=== PATIENT | male | born 1940 | race Two or more races ===

== ENCOUNTER 2016-04-29 12:58 | Inpatient (IN) | payer MEDICARE, MEDICAID ==
[~2016-04-29] VITALS: Ht 205.7 cm; Wt 108.9 kg
[~2016-04-29 12:58] MED LIST: METOPROLOL; NAPROXEN
[2016-04-29] MEDS ORDERED: MORPHINE SULFATE 4 MG/ML CPJ (NOT FOR IM USE) IV STA (13:43)
[2016-04-29] MEDS ORDERED: ONDANSETRON HCL 4MG/2ML VIAL IV STA (13:43)
[2016-04-29 14:09] LABS: BASOPHILS % 0.8 % (0.0-2.0); DIFFERENTIAL COMMENT 0; EOSINOPHILS % 0.1 % (0.0-5.0); HEMATOCRIT. 43.8 % (42.0-52.0); HEMOGLOBIN. 15.1 g/dL (14.0-18.0); LYMPHOCYTES % 11.3 % (20.0-50.0); MEAN CORPUSCULAR HEMOGLOBIN 36.2 pg (28.0-32.0); MEAN CORPUSCULAR HGB CONC 34.5 g/dL (31.0-37.0); MEAN CORPUSCULAR VOLUME 105.1 fL (80.0-94.0); MEAN PLATELET VOLUME 9.7 fl (7.4-10.4); MONOCYTES % 14.3 % (2.0-8.0); NEUTROPHILS % 73.5 % (40.0-76.0); PLATELET 183 x1000/uL (130-400); RED BLOOD CELL COUNT 4.17 mill/uL (4.7-6.1); RED CELL DISTRIBUTION WIDTH 14.1 % (11.6-14.6); WHITE BLOOD COUNT 12.6 x1000/uL (4.5-11.0)
[2016-04-29 14:13] LABS: INR 1.1; PROTHROMBIN TIME 11.3 sec
[2016-04-29 14:20] LABS: ALANINE AMINOTRANSFERASE 50 IU/L (13-61); ALBUMIN 2.8 g/dL (3.4-5.0); ANION GAP 13; CALCIUM 8.9 mg/dL (8.5-10.1); CARBON DIOXIDE 26 mEq/L (21-32); CHLORIDE 104 mEq/L (98-107); INDEX HEMOLYSI 1 (1-3); INDEX ICTERIC 1 (1-4); INDEX LIPEMIC 1 (1-3); UREA NITROGEN BLOOD 15 mg/dL (7-21); URIC ACID 4.6 mg/dL (2.6-7.2); eGFR > 60 mL/min (>60)
[2016-04-29 14:27] LABS: GLUCOSE URINE NEGATIVE (NEGATIVE); KETONES URINE NEGATIVE (NEGATIVE); LEUKOCYTE ESTERASE URINE NEGATIVE (NEGATIVE); NITRITE URINE NEGATIVE (NEGATIVE); OCCULT BLOOD URINE TRACE (NEGATIVE); PH URINE 5.5 (4.5-8.0); PROTEIN URINE 3+ (NEGATIVE); SPECIFIC GRAVITY URINE 1.021 (1.005-1.030)
[2016-04-29 14:36] LABS: CLARITY URINE CLEAR (CLEAR); COLOR URINE YELLOW (YELLOW)
[2016-04-29 14:49] LABS: BACTERIA URINE NONE SEEN; COARSE GRANULAR CASTS URINE 0-5 /lpf; HYALINE CASTS URINE 0-5 /lpf; RBC URINE 0-2 /hpf (0-2); SQUAMOUS EPITHELIAL CELL URINE RARE /lpf (RARE/1+); WBC URINE 0-2 /hpf (0-2)
[2016-04-29] MEDS ORDERED: LIDOCAINE HCL/EPINEPHRINE 1%-EPI 1:100,000 20 ML VIAL MC ONE (15:15)
[2016-04-29] MEDS ORDERED: VANCOMYCIN 1 G PREMIX 200 ML IV SCH (17:15)
[2016-04-29 18:05] LABS: BODY FLUID WBC 92750 /cu mm (0-200)
[2016-04-29 18:45] LABS: BODY FLUID MONOCYTES 5 %
[2016-04-29] MEDS ORDERED: ACETAMINOPHEN 325MG TABLET PO PRN (21:30)
[2016-04-29] MEDS ORDERED: ONDANSETRON HCL 4MG/2ML VIAL IV PRN (21:30)
[2016-04-29] MEDS ORDERED: CLONIDINE 0.1MG TABLET PO PRN (21:30)
[2016-04-29] MEDS ORDERED: IPRATROPIUM/ALBUTEROL 0.5-3(2.5)MG/3ML NEB INH PRN (21:30)
[2016-04-29] MEDS ORDERED: MAGNESIUM/ALUMINUM HYDROXIDE/SIMETHICONE 30ML UDC PO PRN (21:30)
[2016-04-29 22:40] VITALS: BP 128/89
[2016-04-29] MEDS ORDERED: LOSA100T14 PO (22:51)
[2016-04-29 23:25] VITALS: BP 128/89
[2016-04-29 23:57] VITALS: BP 152/85
[2016-04-30] MEDS: INDOMETHACIN 50MG CAPSULE PO SCH ×4 (00:26→23:55)
[2016-04-30 00:28] LABS: CHLORIDE 107 mEq/L (98-107); INDEX HEMOLYSI 1 (1-3); INDEX ICTERIC 1 (1-4); INDEX LIPEMIC 1 (1-3)
[2016-04-30 00:37] LABS: ANION GAP 11; CALCIUM 8.4 mg/dL (8.5-10.1); CARBON DIOXIDE 26 mEq/L (21-32); MAGNESIUM 2.1 mg/dL (1.8-2.4); UREA NITROGEN BLOOD 16 mg/dL (7-21); eGFR > 60 mL/min (>60)
[2016-04-30 03:56] VITALS: BP 118/80
[2016-04-30] MEDS ORDERED: VANCOMYCIN 1 G PREMIX 200 ML IV SCH (04:00)
[2016-04-30] MEDS ORDERED: INDOMETHACIN 50MG CAPSULE PO SCH (06:00)
[2016-04-30] MEDS: OMEPRAZOLE 20MG CAPSULE EXTENDED RELEASE PO SCH (06:48)
[2016-04-30 06:55] LABS: THYROID STIMULATING HORMONE 2.7 uIU/mL (0.36-3.74)
[2016-04-30 07:57] LABS: BASOPHILS % 0.6 % (0.0-2.0); EOSINOPHILS % 0.2 % (0.0-5.0); HEMATOCRIT. 43.2 % (42.0-52.0); HEMOGLOBIN. 14.7 g/dL (14.0-18.0); MEAN CORPUSCULAR HEMOGLOBIN 36.3 pg (28.0-32.0); MONOCYTES % 13.4 % (2.0-8.0); NEUTROPHILS % 70.8 % (40.0-76.0); RED BLOOD CELL COUNT 4.04 mill/uL (4.7-6.1); RED CELL DISTRIBUTION WIDTH 14.1 % (11.6-14.6); WHITE BLOOD COUNT 12.4 x1000/uL (4.5-11.0)
[2016-04-30 08:00] VITALS: BP 125/87
[2016-04-30 08:03] LABS: DIFFERENTIAL COMMENT 1
[2016-04-30] MEDS: LOSARTAN POTASSIUM 100 MG TABLET PO SCH (09:00)
[2016-04-30] MEDS: ENOXAPARIN 30MG/0.3ML SYR SUBCUT SCH ×2 (09:01→23:55)
[2016-04-30 12:00] VITALS: BP 133/84
[2016-04-30] MEDS ORDERED: POTASSIUM CHLORIDE 20MEQ TABLET SR PO NR (13:55)
[2016-04-30 16:00] VITALS: BP 113/75
[2016-04-30] MEDS ORDERED: VANCOMYCIN 1250MG in DEXTROSE 5% WATER 250ML IV SCH (18:00)
[2016-04-30 19:53] VITALS: BP 132/80
[2016-05-01] VITALS (7 sets, daily range): BP systolic 105–129; BP diastolic 68–81
[2016-05-01] MEDS: LOSARTAN POTASSIUM 100 MG TABLET PO SCH (09:30)
[2016-05-01] MEDS: INDOMETHACIN 50MG CAPSULE PO SCH ×3 (09:30→23:57)
[2016-05-01] MEDS: OMEPRAZOLE 20MG CAPSULE EXTENDED RELEASE PO SCH (09:30)
[2016-05-01] MEDS: ENOXAPARIN 30MG/0.3ML SYR SUBCUT SCH ×3 (09:30→21:54)
[2016-05-01 16:53] LABS: BASOPHILS % 0.6 % (0.0-2.0); DIFFERENTIAL COMMENT 0; HEMATOCRIT. 40.2 % (42.0-52.0); HEMOGLOBIN. 13.6 g/dL (14.0-18.0); MEAN CORPUSCULAR HGB CONC 33.8 g/dL (31.0-37.0); MEAN CORPUSCULAR VOLUME 106.4 fL (80.0-94.0); MEAN PLATELET VOLUME 9.7 fl (7.4-10.4); MONOCYTES % 10.1 % (2.0-8.0); NEUTROPHILS % 72.3 % (40.0-76.0); PLATELET 205 x1000/uL (130-400); RED BLOOD CELL COUNT 3.78 mill/uL (4.7-6.1); WHITE BLOOD COUNT 8.2 x1000/uL (4.5-11.0)
[2016-05-02] VITALS: BP_SYST 109; BP_SYST 115; BP_DIAS 64
[2016-05-02 04:00] VITALS: BP 139/87
[2016-05-02] MEDS ORDERED: FAMOTIDINE 20MG TABLET PO SCH (07:20)
[2016-05-02 08:00] VITALS: BP 138/84
[2016-05-02] MEDS: LOSARTAN POTASSIUM 100 MG TABLET PO SCH (08:51)
[2016-05-02] MEDS: INDOMETHACIN 50MG CAPSULE PO SCH (08:51)
[2016-05-02] MEDS: ENOXAPARIN 30MG/0.3ML SYR SUBCUT SCH (08:51)
[2016-05-02 12:00] VITALS: BP 128/75
== END 2016-05-02 12:15 | disposition home or self-care (01) | DRG 553 ==
LOC: ER 13:49 → 6EST 23:33
PROVIDERS: ADMIT Internal Medicine; ATTEND Internal Medicine
PROC: 0S9C3ZX Drainage of Right Knee Joint, Percutaneous Approach, Diagnostic (ICD-10-PCS; principal; 2016-04-29)
DX: M10.061 Idiopathic gout, right knee (principal); E43 Unspecified severe protein-calorie malnutrition; R65.10 Systemic inflammatory response syndrome (SIRS) of non-infectious origin without acute organ dysfunction; J98.11 Atelectasis; I10 Essential (primary) hypertension; E11.9 Type 2 diabetes mellitus without complications; I11.9 Hypertensive heart disease without heart failure; I51.7 Cardiomegaly; J44.9 Chronic obstructive pulmonary disease, unspecified; M19.90 Unspecified osteoarthritis, unspecified site; M79.89 Other specified soft tissue disorders; Z98.890 Other specified postprocedural states
CPT/HCPCS: 20610; 36415; 71010; 73130; 73562; 80048; 80053; 80061; 81001; 82962; 83605; 83735; 84145; 84443; 84550; 85025; 85610; 85651; 86140; 87040; 87070; 87205; 89050; 89060; 93005; 93971; 96374; 96375; 97116; 97162; 97530; 99285; A4565; J1650; J2270; J2405; J3370; J3490; J7040; J7060

== ENCOUNTER 2016-07-03 08:25 | Emergency (ER) | payer MEDICARE, MEDICAID ==
[~2016-07-03] VITALS: Ht 172.7 cm; Wt 85.0 kg
[~2016-07-03 08:25] MED LIST changes: +LOSA100T14 PO
[2016-07-03] MEDS ORDERED: METO100T5 PO (10:03)
[2016-07-03] MEDS ORDERED: CHOL500010 PO (10:03)
[2016-07-03] MEDS ORDERED: NIFE60TA64 PO (10:03)
[2016-07-03] MEDS ORDERED: ESCI10TA54 PO (10:03)
[2016-07-03] MEDS ORDERED: METF500T4 PO (10:03)
[2016-07-03] MEDS ORDERED: FURO20TA4 PO (10:03)
[2016-07-03] MEDS ORDERED: MORPHINE SULFATE 10 MG/ML CPJ IM NR (10:45)
[2016-07-03 11:20] LABS: BASOPHILS % 0.4 % (0.0-2.0); DIFFERENTIAL COMMENT 0; EOSINOPHILS % 0.1 % (0.0-5.0); HEMATOCRIT. 32.5 % (42.0-52.0); LYMPHOCYTES % 9.9 % (20.0-50.0); MEAN CORPUSCULAR HEMOGLOBIN 34.1 pg (28.0-32.0); MEAN CORPUSCULAR VOLUME 100.3 fL (80.0-94.0); MEAN PLATELET VOLUME 10.1 fl (7.4-10.4); MONOCYTES % 11.4 % (2.0-8.0); NEUTROPHILS % 78.2 % (40.0-76.0); PLATELET 211 x1000/uL (130-400); RED BLOOD CELL COUNT 3.24 mill/uL (4.7-6.1); RED CELL DISTRIBUTION WIDTH 14.2 % (11.6-14.6); WHITE BLOOD COUNT 14.8 x1000/uL (4.5-11.0)
[2016-07-03 11:33] LABS: ALANINE AMINOTRANSFERASE 50 IU/L (13-61); ALBUMIN 2.1 g/dL (3.4-5.0); ANION GAP 13; CALCIUM 8.7 mg/dL (8.5-10.1); CARBON DIOXIDE 24 mEq/L (21-32); CHLORIDE 103 mEq/L (98-107); INDEX HEMOLYSI 1 (1-3); INDEX ICTERIC 1 (1-4); INDEX LIPEMIC 1 (1-3); UREA NITROGEN BLOOD 17 mg/dL (7-21); URIC ACID 4.7 mg/dL (2.6-7.2); eGFR > 60 mL/min (>60)
[2016-07-03] MEDS ORDERED: IBUPROFEN 600MG TABLET PO ONE (13:30)
[2016-07-03 17:14] VITALS: BP 139/73
== END 2016-07-03 17:20 | disposition home or self-care (01) ==
LOC: ER 08:34
DX: M17.12 Unilateral primary osteoarthritis, left knee (principal); M25.562 Pain in left knee; I10 Essential (primary) hypertension; E11.9 Type 2 diabetes mellitus without complications; M19.90 Unspecified osteoarthritis, unspecified site; G89.29 Other chronic pain; Z79.899 Other long term (current) drug therapy
CPT/HCPCS: 36415; 73560; 80053; 84550; 85025; 93971; 96372; 99285; J2270

== ENCOUNTER 2020-01-13 10:19 | Emergency (ER) | payer MEDICARE, MEDICAID ==
[~2020-01-13] VITALS: Ht 157.5 cm; Wt 109.0 kg
[~2020-01-13 10:19] MED LIST changes: +CHOL500010 PO; +ESCI10TA61 PO; +FURO20TA4 PO; -LOSA100T14 PO; +LOSA100T32 PO; +METF-414 PO; +METO100T16 PO; -METOPROLOL; -NAPROXEN; +NIFE60TA64 PO
[2020-01-13] MEDS ORDERED: ACETAMINOPHEN WITH CODEINE 300/30MG TABLET PO ONE (11:15)
[2020-01-13 11:48] VITALS: BP 169/92
== END 2020-01-13 13:58 | disposition home or self-care (01) ==
LOC: ER 10:32
DX: G89.29 Other chronic pain (principal); M79.605 Pain in left leg; M79.604 Pain in right leg; I10 Essential (primary) hypertension; E11.9 Type 2 diabetes mellitus without complications; Z79.899 Other long term (current) drug therapy
CPT/HCPCS: 93005; 99283

== ENCOUNTER 2021-02-25 12:56 | Inpatient (IN) | payer MEDICARE, MEDICAID ==
[~2021-02-25] VITALS: Ht 162.6 cm; Wt 59.9 kg
[~2021-02-25 12:56] MED LIST changes: +ESCI-7 PO; -ESCI10TA61 PO
[2021-02-25] MEDS ORDERED: SODIUM CHLORIDE 0.9% 1,000 ML IV ONE (13:30)
[2021-02-25 14:25] LABS: BASOPHILS % 0.4 % (0.0-2.0); EOSINOPHILS % 0.1 % (0.0-5.0); HEMATOCRIT. 40.8 % (42.0-52.0); LYMPHOCYTES % 9.7 % (20.0-50.0); MEAN CORPUSCULAR HEMOGLOBIN 35.5 pg (28.0-32.0); MEAN CORPUSCULAR VOLUME 103.5 fL (80.0-94.0); MEAN PLATELET VOLUME 11.7 fl (7.4-10.4); MONOCYTES % 6.5 % (2.0-8.0); NEUTROPHILS % 83.3 % (40.0-76.0); PLATELET 151 x1000/uL (130-400); RED BLOOD CELL COUNT 3.94 mill/uL (4.7-6.1); RED CELL DISTRIBUTION WIDTH 12.5 % (11.6-14.6)
[2021-02-25 14:33] LABS: CHLORIDE 107 mEq/L (98-107)
[2021-02-25 14:40] LABS: CREATINE KINASE 116 IU/L (39-308)
[2021-02-25 14:46] LABS: CLARITY URINE CLEAR (CLEAR); COLOR URINE DARK YELLOW (YELLOW); KETONES URINE TRACE (NEGATIVE); LEUKOCYTE ESTERASE URINE TRACE (NEGATIVE); NITRITE URINE NEGATIVE (NEGATIVE); OCCULT BLOOD URINE NEGATIVE (NEGATIVE); PH URINE 7.5 (4.5-8.0); PROTEIN URINE 4+ (NEGATIVE); SPECIFIC GRAVITY URINE 1.019 (1.005-1.030)
[2021-02-25] MEDS ORDERED: CEFTRIAXONE 1 G PREMIX 50 ML IV ONE (20:30)
[2021-02-26 09:00] VITALS: BP 167/98
[2021-02-26 09:23] VITALS: BP 171/100
[2021-02-26] MEDS ORDERED: ACETAMINOPHEN 325MG TABLET PO PRN (11:15)
[2021-02-26] MEDS ORDERED: ONDANSETRON HCL 4MG/2ML INJ IV PRN (11:15)
[2021-02-26] MEDS ORDERED: HYDROCODONE/ACETAMINOPHEN 5/325MG TABLET PO PRN (11:15)
[2021-02-26] MEDS ORDERED: IPRATROPIUM/ALBUTEROL 0.5-3(2.5)MG/3ML NEB HHN PRN (11:15)
[2021-02-26] MEDS ORDERED: NALOXONE HCL 0.4MG/ML VIAL IV PRN (11:30)
[2021-02-26 12:00] VITALS: BP 159/116
[2021-02-26] MEDS: ENOXAPARIN 40MG/0.4ML SYR SUBCUT SCH (12:35)
[2021-02-26] MEDS ORDERED: LEVOFLOXACIN 500MG PREMIX 100 ML IV NR (13:00)
[2021-02-26] MEDS: LOSARTAN POTASSIUM 100 MG TABLET PO SCH (13:07)
[2021-02-26] MEDS ORDERED: DEXTROSE 50% WATER 50ML SYRINGE IV PRN (14:15)
[2021-02-26] MEDS ORDERED: HYDRALAZINE 20MG/ML VIAL IV SCH (15:30)
[2021-02-26 16:00] VITALS: BP 155/84
[2021-02-26] MEDS: BLOOD SUGAR DIAGNOSTIC STRIP TEST SCH ×2 (17:17→21:00)
[2021-02-26] MEDS: INSULIN LISPRO 100 UNITS/ML SUBCUT SCH ×2 (17:17→21:39)
[2021-02-26 18:03] LABS: CHLORIDE 109 mEq/L (98-107)
[2021-02-26 18:04] LABS: BASOPHILS % 0.4 % (0.0-2.0); EOSINOPHILS % 0.2 % (0.0-5.0); HEMATOCRIT. 43.4 % (42.0-52.0); HEMOGLOBIN. 14.9 g/dL (14.0-18.0); LYMPHOCYTES % 19.4 % (20.0-50.0); MEAN CORPUSCULAR HEMOGLOBIN 35.2 pg (28.0-32.0); MEAN CORPUSCULAR VOLUME 102.6 fL (80.0-94.0); MEAN PLATELET VOLUME 11.6 fl (7.4-10.4); MONOCYTES % 7.2 % (2.0-8.0); NEUTROPHILS % 72.8 % (40.0-76.0); PLATELET 149 x1000/uL (130-400); RED BLOOD CELL COUNT 4.22 mill/uL (4.7-6.1); RED CELL DISTRIBUTION WIDTH 12.7 % (11.6-14.6)
[2021-02-26 18:13] LABS: CREATINE KINASE 268 IU/L (39-308)
[2021-02-26 18:14] LABS: T4 FREE 1.35 ng/dL (0.76-1.46)
[2021-02-26 18:16] LABS: CREATINE KINASE MB FRACTION 2.8 ng/mL (0.5-3.6)
[2021-02-26 19:11] LABS: VITAMIN B12 SERUM 298 pg/mL (211-911)
[2021-02-26 20:00] VITALS: BP 158/96
[2021-02-27] VITALS: BP 177/94
[2021-02-27] MEDS: HYDRALAZINE 20MG/ML VIAL IV PRN (00:10)
[2021-02-27 00:33] LABS: CREATINE KINASE MB FRACTION 2.7 ng/mL (0.5-3.6)
[2021-02-27 04:00] VITALS: BP 137/76
[2021-02-27 05:45] LABS: CHLORIDE 110 mEq/L (98-107)
[2021-02-27 05:56] LABS: LDL CHOLESTEROL 132 mg/dL (5-100)
[2021-02-27 05:57] LABS: HDL CHOLESTEROL 47 mg/dL (40-59); T4 FREE 1.43 ng/dL (0.76-1.46)
[2021-02-27 06:57] LABS: BASOPHILS % 0.6 % (0.0-2.0); EOSINOPHILS % 0.4 % (0.0-5.0); HEMATOCRIT. 40.3 % (42.0-52.0); LYMPHOCYTES % 20.3 % (20.0-50.0); MEAN CORPUSCULAR HEMOGLOBIN 35.6 pg (28.0-32.0); MEAN CORPUSCULAR VOLUME 102.8 fL (80.0-94.0); MEAN PLATELET VOLUME 11.2 fl (7.4-10.4); MONOCYTES % 9.4 % (2.0-8.0); NEUTROPHILS % 69.3 % (40.0-76.0); PLATELET 144 x1000/uL (130-400); RED BLOOD CELL COUNT 3.92 mill/uL (4.7-6.1); RED CELL DISTRIBUTION WIDTH 12.8 % (11.6-14.6)
[2021-02-27] MEDS: BLOOD SUGAR DIAGNOSTIC STRIP TEST SCH ×4 (07:30→21:00)
[2021-02-27 08:00] VITALS: BP 146/78
[2021-02-27] MEDS: INSULIN LISPRO 100 UNITS/ML SUBCUT SCH ×4 (08:00→21:37)
[2021-02-27] MEDS: LOSARTAN POTASSIUM 100 MG TABLET PO SCH (09:57)
[2021-02-27] MEDS: ASPIRIN 81MG TABLET PO SCH (10:44)
[2021-02-27] MEDS: LEVOFLOXACIN 250MG PREMIX 50 ML IV SCH (11:00)
[2021-02-27 12:00] VITALS: BP 157/94
[2021-02-27] MEDS: ENOXAPARIN 40MG/0.4ML SYR SUBCUT SCH (12:00)
[2021-02-27 16:00] VITALS: BP 142/83
[2021-02-27 20:00] VITALS: BP 160/79
[2021-02-27] MEDS: ATORVASTATIN CALCIUM 40MG TABLET PO SCH (21:22)
[2021-02-28] VITALS (12 sets, daily range): BP systolic 127–157; BP diastolic 77–105
[2021-02-28] MEDS: BLOOD SUGAR DIAGNOSTIC STRIP TEST SCH ×4 (07:30→20:36)
[2021-02-28] MEDS: CLOPIDOGREL 75MG TABLET PO SCH (08:47)
[2021-02-28] MEDS: LOSARTAN POTASSIUM 100 MG TABLET PO SCH (08:47)
[2021-02-28] MEDS: ASPIRIN 81MG TABLET PO SCH (08:47)
[2021-02-28] MEDS: INSULIN LISPRO 100 UNITS/ML SUBCUT SCH ×4 (08:48→20:43)
[2021-02-28] MEDS: SODIUM CHLORIDE 0.45% 1,000 ML IV SCH (11:04)
[2021-02-28] MEDS: LEVOFLOXACIN 250MG PREMIX 50 ML IV SCH (11:10)
[2021-02-28] MEDS: ENOXAPARIN 40MG/0.4ML SYR SUBCUT SCH (11:10)
[2021-02-28 12:50] LABS: CHLORIDE 110 mEq/L (98-107)
[2021-02-28 13:00] LABS: BASOPHILS % 0.7 % (0.0-2.0); EOSINOPHILS % 1.3 % (0.0-5.0); HEMATOCRIT. 41.5 % (42.0-52.0); HEMOGLOBIN. 14.2 g/dL (14.0-18.0); LYMPHOCYTES % 23.5 % (20.0-50.0); MEAN CORPUSCULAR HEMOGLOBIN 35.2 pg (28.0-32.0); MEAN PLATELET VOLUME 11.4 fl (7.4-10.4); MONOCYTES % 9.7 % (2.0-8.0); NEUTROPHILS % 64.8 % (40.0-76.0); PLATELET 164 x1000/uL (130-400); RED BLOOD CELL COUNT 4.03 mill/uL (4.7-6.1); RED CELL DISTRIBUTION WIDTH 13.3 % (11.6-14.6)
[2021-02-28] MEDS: ATORVASTATIN CALCIUM 40MG TABLET PO SCH (20:35)
[2021-03-01] VITALS (11 sets, daily range): BP systolic 110–160; BP diastolic 56–93
[2021-03-01] MEDS: SODIUM CHLORIDE 0.45% 1,000 ML IV SCH ×2 (04:00→21:12)
[2021-03-01 06:48] LABS: EOSINOPHILS % 4.1 % (0.0-5.0); HEMATOCRIT. 38.2 % (42.0-52.0); HEMOGLOBIN. 13.5 g/dL (14.0-18.0); MEAN CORPUSCULAR HEMOGLOBIN 36.4 pg (28.0-32.0); MEAN CORPUSCULAR VOLUME 102.9 fL (80.0-94.0); MONOCYTES % 11.7 % (2.0-8.0); NEUTROPHILS % 50.2 % (40.0-76.0); PLATELET 139 x1000/uL (130-400); RED BLOOD CELL COUNT 3.71 mill/uL (4.7-6.1); RED CELL DISTRIBUTION WIDTH 13.1 % (11.6-14.6)
[2021-03-01] MEDS: BLOOD SUGAR DIAGNOSTIC STRIP TEST SCH ×4 (07:30→20:37)
[2021-03-01] MEDS: INSULIN LISPRO 100 UNITS/ML SUBCUT SCH ×4 (08:20→21:08)
[2021-03-01] MEDS: CLOPIDOGREL 75MG TABLET PO SCH (08:32)
[2021-03-01] MEDS: ASPIRIN 81MG TABLET PO SCH (08:33)
[2021-03-01] MEDS: LOSARTAN POTASSIUM 100 MG TABLET PO SCH (08:33)
[2021-03-01] MEDS: LEVOFLOXACIN 250MG PREMIX 50 ML IV SCH (11:05)
[2021-03-01] MEDS: ENOXAPARIN 40MG/0.4ML SYR SUBCUT SCH (11:54)
[2021-03-01] MEDS: ATORVASTATIN CALCIUM 40MG TABLET PO SCH (21:07)
[2021-03-02] VITALS (8 sets, daily range): BP systolic 133–161; BP diastolic 57–98
[2021-03-02] MEDS: INSULIN LISPRO 100 UNITS/ML SUBCUT SCH ×4 (07:57→21:24)
[2021-03-02] MEDS: BLOOD SUGAR DIAGNOSTIC STRIP TEST SCH ×4 (07:58→21:34)
[2021-03-02] MEDS: LOSARTAN POTASSIUM 100 MG TABLET PO SCH (08:01)
[2021-03-02] MEDS: CLOPIDOGREL 75MG TABLET PO SCH (08:01)
[2021-03-02] MEDS: ASPIRIN 81MG TABLET PO SCH (08:01)
[2021-03-02] MEDS: ENOXAPARIN 40MG/0.4ML SYR SUBCUT SCH (12:47)
[2021-03-02] MEDS: LEVOFLOXACIN 250MG PREMIX 50 ML IV SCH (12:47)
[2021-03-02] MEDS ORDERED: LORAZEPAM 2MG/ML CPJ IV PRN (14:30)
[2021-03-02] MEDS: SODIUM CHLORIDE 0.45% 1,000 ML IV SCH (18:39)
[2021-03-02] MEDS: ATORVASTATIN CALCIUM 40MG TABLET PO SCH (21:21)
[2021-03-03] VITALS (9 sets, daily range): BP systolic 132–173; BP diastolic 62–110
[2021-03-03] MEDS: BLOOD SUGAR DIAGNOSTIC STRIP TEST SCH ×4 (07:30→21:39)
[2021-03-03] MEDS: INSULIN LISPRO 100 UNITS/ML SUBCUT SCH ×4 (08:00→21:42)
[2021-03-03] MEDS: LOSARTAN POTASSIUM 100 MG TABLET PO SCH (09:04)
[2021-03-03] MEDS: ASPIRIN 81MG TABLET PO SCH (09:04)
[2021-03-03] MEDS: CLOPIDOGREL 75MG TABLET PO SCH (09:04)
[2021-03-03] MEDS: ENOXAPARIN 40MG/0.4ML SYR SUBCUT SCH (13:44)
[2021-03-03] MEDS: SODIUM CHLORIDE 0.45% 1,000 ML IV SCH (13:47)
[2021-03-03] MEDS: ATORVASTATIN CALCIUM 40MG TABLET PO SCH (21:41)
[2021-03-04] VITALS: BP 147/80
[2021-03-04 04:00] VITALS: BP 150/93
[2021-03-04 08:00] VITALS: BP 140/72
[2021-03-04] MEDS: INSULIN LISPRO 100 UNITS/ML SUBCUT SCH ×4 (08:00→21:10)
[2021-03-04] MEDS: BLOOD SUGAR DIAGNOSTIC STRIP TEST SCH ×4 (08:13→21:06)
[2021-03-04] MEDS: LOSARTAN POTASSIUM 100 MG TABLET PO SCH (09:12)
[2021-03-04] MEDS: CLOPIDOGREL 75MG TABLET PO SCH (09:12)
[2021-03-04] MEDS: ASPIRIN 81MG TABLET PO SCH (09:12)
[2021-03-04] MEDS: HYDRALAZINE 20MG/ML VIAL IV PRN (09:43)
[2021-03-04] MEDS: SODIUM CHLORIDE 0.45% 1,000 ML IV SCH (10:02)
[2021-03-04] MEDS: ENOXAPARIN 40MG/0.4ML SYR SUBCUT SCH (11:39)
[2021-03-04 12:00] VITALS: BP 123/65
[2021-03-04 16:00] VITALS: BP 139/78
[2021-03-04 20:00] VITALS: BP 114/75
[2021-03-04] MEDS: ATORVASTATIN CALCIUM 40MG TABLET PO SCH (21:06)
[2021-03-05] VITALS (8 sets, daily range): BP systolic 123–159; BP diastolic 61–89
[2021-03-05] MEDS: SODIUM CHLORIDE 0.45% 1,000 ML IV SCH (06:57)
[2021-03-05] MEDS: BLOOD SUGAR DIAGNOSTIC STRIP TEST SCH ×3 (07:30→17:17)
[2021-03-05] MEDS: INSULIN LISPRO 100 UNITS/ML SUBCUT SCH ×3 (08:00→17:46)
[2021-03-05] MEDS ORDERED: ENOXAPARIN 30MG/0.3ML SYR SUBCUT SCH (09:00)
[2021-03-05] MEDS: CLOPIDOGREL 75MG TABLET PO SCH (09:45)
[2021-03-05] MEDS: ASPIRIN 81MG TABLET PO SCH (09:45)
[2021-03-05] MEDS: LOSARTAN POTASSIUM 100 MG TABLET PO SCH (09:46)
[2021-03-05 10:12] LABS: BASOPHILS % 0.7 % (0.0-2.0); EOSINOPHILS % 5.3 % (0.0-5.0); HEMATOCRIT. 42.3 % (42.0-52.0); HEMOGLOBIN. 14.1 g/dL (14.0-18.0); LYMPHOCYTES % 30.9 % (20.0-50.0); MEAN CORPUSCULAR HEMOGLOBIN 34.8 pg (28.0-32.0); MEAN CORPUSCULAR VOLUME 104.1 fL (80.0-94.0); MEAN PLATELET VOLUME 11.3 fl (7.4-10.4); MONOCYTES % 10.5 % (2.0-8.0); NEUTROPHILS % 52.6 % (40.0-76.0); PLATELET 154 x1000/uL (130-400); RED BLOOD CELL COUNT 4.06 mill/uL (4.7-6.1); RED CELL DISTRIBUTION WIDTH 13.3 % (11.6-14.6)
== END 2021-03-05 18:50 | DRG 64 ==
LOC: ER 12:56 → 5EST 20:32 → EDBEDREQ 20:38 → EDBEDREQTM 20:38 → ENRESERV 02-26 07:39 → UNDOADMIN 02-26 09:00 → 5EST 02-26 09:00
PROVIDERS: ADMIT Internal Medicine; ATTEND Internal Medicine
DX: I63.9 Cerebral infarction, unspecified (principal); G93.41 Metabolic encephalopathy; N17.9 Acute kidney failure, unspecified; N39.0 Urinary tract infection, site not specified; F03.90 Unspecified dementia, unspecified severity, without behavioral disturbance, psychotic disturbance, mood disturbance, and anxiety; M10.9 Gout, unspecified; M85.80 Other specified disorders of bone density and structure, unspecified site; E11.65 Type 2 diabetes mellitus with hyperglycemia; G90.8 Other disorders of autonomic nervous system; E78.5 Hyperlipidemia, unspecified; I12.9 Hypertensive chronic kidney disease with stage 1 through stage 4 chronic kidney disease, or unspecified chronic kidney disease; N18.9 Chronic kidney disease, unspecified; E11.22 Type 2 diabetes mellitus with diabetic chronic kidney disease; Z60.2 Problems related to living alone; Z20.822 Contact with and (suspected) exposure to COVID-19; Z79.82 Long term (current) use of aspirin; Z79.84 Long term (current) use of oral hypoglycemic drugs; Z79.899 Other long term (current) drug therapy
CPT/HCPCS: 36415; 70551; 71045; 72170; 73610; 80048; 80053; 80061; 81003; 82550; 82553; 82607; 82962; 83036; 84439; 84443; 84484; 85025; 87426; 92610; 93005; 93306; 93880; 95816; 97112; 97162; 97166; 97530; 97535; 99291; J0360; J0696; J1650; J1815; J1956; J7030